=== PATIENT | female | born 1985 | race Two or more races ===

== ENCOUNTER 2018-11-30 05:47 | Emergency (ER) | payer OTHER ==
[~2018-11-30] VITALS: Ht 170.2 cm; Wt 62.8 kg
[2018-11-30 05:51] VITALS: BP 110/72
[2018-11-30] MEDS ORDERED: normal saline 1000ML IV soln IVB ONE (06:25)
[2018-11-30] MEDS ORDERED: ondansetron/PF 4mg/2ml inj IV ONE (06:25)
--- NOTE | 2018-11-30 06:52 | NUR ---
ASSUMED PT CARE, PT RESTING QUIETLY IN ROOM WITH FRIEND AT BEDSIDE
[2018-11-30 07:21] LABS: URINE HCG NEGATIVE (NEG)
[2018-11-30] MEDS ORDERED: ONDA4TAB6 PO (07:43)
== END 2018-11-30 08:24 | disposition home or self-care (01) ==
LOC: ER 05:48
DX: T62.8X1A Toxic effect of other specified noxious substances eaten as food, accidental (unintentional), initial encounter (principal); R11.10 Vomiting, unspecified; A08.4 Viral intestinal infection, unspecified; Y92.89 Other specified places as the place of occurrence of the external cause
CPT/HCPCS: 81025; 96361; 96374; 99283; J2405; J7030